=== PATIENT | male | born 1975 | race Caucasian/White ===

== ENCOUNTER 2023-11-23 18:55 | Emergency (ER) | payer BC, SELFPAY ==
[2023-11-23] VITALS (21 sets, daily range): BP systolic 85–140; BP diastolic 48–74; PULSE 67–92; RESP 11–19; TEMP 36.7; O2SAT 95–100
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
[2023-11-23 20:14] LABS: HCT 44.3 % (40.0-50.0); MCH 30.2 pg (27.0-33.0); MCHC 33.9 % (32.0-36.0); MCV 89 fL (80-95); MPV 9.5 fL (8.0-11.0); Platelet Count 272 10^3/uL (130-400); RBC 4.96 10^6/uL (4.36-5.78); RDW 12.8 % (11.8-14.1); RDW-SD 42.2 fL; WBC 14.83 10^3/uL (4.4-10.8)
[2023-11-23 20:28] LABS: Anion Gap 8.5 mmol/L (3-11); BUN 18 mg/dL (7-18); CO2 28.5 mmol/L (21.0-32.0); Calcium 8.8 mg/dL (8.5-10.1); Chloride 104 mmol/L (98-107); Estimated GFR 92.84 (mL/min/1.73m2); Glucose 105 mg/dL (74-106); Potassium 3.4 mmol/L (3.5-5.1); Sodium 141 mmol/L (136-145)
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
[2023-11-23] MEDS: Normal Saline - Diluent 50 ML VIAL IJ (20:42)
[2023-11-23] MEDS: Omnipaque 350 MG/ML 100 ML BTL IJ (20:42)
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
--- NOTE | 2023-11-23 21:50 | NUR.NOTE ---
Nursing Note: Report and transfer of care given to Sarah Mckeon RN
[2023-11-23] MEDS: Lidocaine 5% Patch 1 PATCH TP (22:20)
[2023-11-23] MEDS: ACETAMINOPHEN 1,000 MG/100 ML BTL 400 MG IVPB (22:20)
--- NOTE | 2023-11-23 22:33 | NUR.NOTE ---
Patient sitting in wheelchair via Room 1 as per patient request. Medicated with acetaminophen 1000mg. 2Loxygen commenced as per Provider order. Lidocaine applied to the right side
[2023-11-23] MEDS: HYDROmorphone 2 MG/ML SYR 0.5 MG IVP (23:07)
--- NOTE | 2023-11-23 23:16 | DI.RAD_ITS ---
Exam(s) XR PORTABLE CHEST AP EXAM: XR PORTABLE CHEST AP CLINICAL HISTORY: eval for pneumo change TECHNIQUE: 2D digital imaging was performed. COMPARISON: CR,XR XR CLAVICLE RT from 11/23/2023 FINDINGS: LUNGS: Right lower lobe atelectasis.. Stable size of right pneumothorax compared to clavicle x-rays. HEART: Normal size. AORTA: Normal diameter. BONES: Right rib fractures partially visualized. Soft tissues: Unremarkable. IMPRESSION: Stable size of right pneumothorax. Mild right lower lobe atelectasis DATA REPOSITORY: RADIATION DOSE DELIVERED:
--- NOTE | 2023-11-23 23:24 | DI.VRAD_ITS ---
PROCEDURE INFORMATION: Exam: XR Chest Exam date and time: 11/23/2023 11:14 PM Age: 48 years old Clinical indication: Other: Eval for pneumo change TECHNIQUE: Imaging protocol: Radiologic exam of the chest. Views: 1 view. COMPARISON: CT CHEST/ABD/PEL W 11/23/2023 8:19 PM FINDINGS: Lungs: Mild right lower lobe atelectasis. Minimal pneumothorax at the right lung base. Pleural spaces: There is a moderate-sized right apical pneumothorax probably not significantly changed compared to recent chest CT. Heart/Mediastinum: Unremarkable. No cardiomegaly. Bones/joints: Right 6th rib fracture noted. There appear to be several other fractures apparently at the 8th and 9th rib levels. IMPRESSION: Allowing for technical differences and CT comparison, no significant changes to right pneumothorax. Dictated and Authenticated by: Rose Marie Singh MD. Ordering:ANDRZEJ Ferguson MD
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
[2023-11-23] MEDS: Lactated Ringers 1,000 ML 1000 ML IV (23:37)
[2023-11-24] VITALS (11 sets, daily range): BP systolic 121–130; BP diastolic 53–61; PULSE 57–79; RESP 14–17; TEMP 36.7; O2SAT 98–99
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
== END 2023-11-24 01:05 | disposition short-term general hospital (02) ==
PROVIDERS: Nurse Practitioner Family; Emergency Provider Student in an Organized Health Care Education/Training Program
DX: S42.021A Displaced fracture of shaft of right clavicle, initial encounter for closed fracture (principal); J93.83 Other pneumothorax; J90 Pleural effusion, not elsewhere classified; J98.11 Atelectasis; S22.41XA Multiple fractures of ribs, right side, initial encounter for closed fracture; V18.0XXA Pedal cycle driver injured in noncollision transport accident in nontraffic accident, initial encounter
CPT/HCPCS: 00123; 36415; 74177; 80048; 85027; 96361; 96374; 96375; 99285; 71045; 71260; 72125; 73000; J0131; J1170; J3490